=== PATIENT | female | born 1985 | race Caucasian/White ===

== ENCOUNTER 2021-12-17 16:30 | Emergency (ER) | payer OTHER ==
[2021-12-17 16:38] VITALS: BP 125/72
--- NOTE | 2021-12-17 16:49 | ED Physician Documentation ---
History of Present Illness - Stated complaint Stated Complaint: LUMP ON HEAD,HEADACHE - Chief complaint Chief Complaint: General - History obtained from History obtained from: Patient - Additonal information Additional information: 36-year-old woman otherwise healthy takes sertraline has noticed a lump to the back of her head that comes and goes for probably years. More recently the lumps been more tender and now she has a headache and she feels lightheaded when she laughs. No sudden onset headaches. No fever, no neck stiffness. Review of Systems Constitutional: denies: Fever, Chills, Fatigue Cardiac: denies: Chest pain / pressure, Palpitations Respiratory: denies: Dyspnea, Cough : reports: Irregular menses (She had a Nexplanon in place and then had it removed. Now her periods which were stone unloader are becoming more normal but they are still stone unloader than they were.) PD PAST MEDICAL HISTORY - Allergies Allergies/Adverse Reactions: Allergies Allergy/AdvReac Type Severity Reaction Status Date / Time No Known Drug Allergies Allergy Verified 12/17/21 16:38 PD ED PE NORMAL - Vitals Vital signs reviewed: Yes - General General: Alert and oriented X 3, No acute distress - HEENT HEENT: PERRL, EOMI, Other (Small palpable mass, question sebaceous cyst left occiput. No overlying skin changes.) - Neck Neck: Supple, no meningeal sign, No bony TTP - Cardiac Cardiac: RRR, No murmur - Respiratory Respiratory: No respiratory distress, Clear bilaterally - Abdomen Abdomen: Non tender - Neuro Neuro: Alert and oriented X 3, renal dialysis technician 2-12 intact, No motor deficit, No sensory deficit, Normal speech Eye Opening: Spontaneous Motor: Obeys Commands Verbal: Oriented GCS Score: 15 Results - Vitals Vitals: Vital Signs - 24 hr 12/17/21 16:34 Temperature 36.2 C L Heart Rate 82 Respiratory 16 Rate Blood Pressure 125/72 O2 Saturation 98 Oxygen O2 Source Room air - Labs Labs: Laboratory Tests 12/17/21 12/17/21 17:00 17:00 WBC 6.4 RBC 3.85 L Hgb 12.3 Hct 36.0 L MCV 93.5 MCH 31.9 H MCHC 34.2 RDW 12.7 Plt Count 169 MPV 12.4 H Neut # (Auto) 3.8 Lymph # (Auto) 1.9 [place] # (Auto) 0.4 Eos # (Auto) 0.2 Baso # (Auto) 0.0 Absolute Nucleated RBC 0.00 Nucleated RBC % 0.0 Sodium 137 Potassium 3.8 Chloride 103 Carbon Dioxide 26 Anion Gap 8.0 BUN 14 Creatinine 0.8 Estimated GFR (MDRD) 81 L Glucose 113 H Calcium 9.3 PD MEDICAL DECISION MAKING - ED course ED course: 36-year-old woman with a symptomatic lump on the back of her head which is very small on exam. No CT findings. She also had some dizziness when she laughed and was screened for anemia and only has very mild anemia. ENT follow-up was advised. Departure - Departure Disposition: 01 Home, Self Care Clinical Impression: Headache, Scalp mass Condition: Good Record reviewed to determine appropriate education?: Yes Instructions: ED Cephalgia Unspecified Comments: The lump on the back of her head is pretty small, the fact that its been there for a long time is reassuring but reasonable to seek specialty consultation, as such I think it would appropriate be appropriate to follow-up with an ENT surgeon for consideration for biopsy or other diagnostics. The closest is in [place], the phone number is [phone].
[2021-12-17 17:08] LABS: BASOPHILS % (AUTO) 0.6 %; EOSINOPHILS # (AUTO) 0.2 10^3/uL (0.0-0.7); EOSINOPHILS % (AUTO) 3.7 %; HGB - HEMOGLOBIN 12.3 g/dL (12.0-16.0); LYMPHOCYTES # (AUTO) 1.9 10^3/uL (1.5-3.5); LYMPHOCYTES % (AUTO) 28.9 %; MEAN CORPUSCULAR HEMOGLOBIN 31.9 pg (27.0-31.0); MEAN CORPUSCULAR HGB CONC 34.2 g/dL (32.0-36.0); MEAN CORPUSCULAR VOLUME 93.5 fL (81.0-99.0); MEAN PLATELET VOLUME 12.4 fL (7.9-10.8); MONOCYTES # (AUTO) 0.4 10^3/uL (0.0-1.0); MONOCYTES % (AUTO) 6.6 %; NEUTROPHILS # (AUTO) 3.8 10^3/uL (1.5-6.6); NEUTROPHILS % (AUTO) 59.7 %; PLT - PLATELET COUNT 169 10^3/uL (130-450); RED BLOOD COUNT 3.85 10^6/uL (4.20-5.40); RED CELL DISTRIBUTION WIDTH 12.7 % (12.0-15.0); WHITE BLOOD COUNT 6.4 x10^3/uL (4.8-10.8)
[2021-12-17 17:19] LABS: CALCIUM 9.3 mg/dL (8.5-10.3); CREATININE 0.8 mg/dL (0.4-1.0); POTASSIUM 3.8 mmol/L (3.5-5.0)
--- NOTE | 2021-12-17 17:25 | CT Report ---
PROCEDURE: HEAD WO INDICATIONS: headache TECHNIQUE: Noncontrast 4.5 mm thick angled axial sections acquired from the foramen magnum to the vertex. For r adiation dose reduction, the following was used: automated exposure control, adjustment of mA and/or kV according to patient size. COMPARISON: None. FINDINGS: Image quality: Excellent. CSF spaces: Basal cisterns are patent. No extra-axial fluid collections. Ventricles are normal in size and shape. Brain: No midline shift. No intracranial masses or hemorrhage. Ha-white matter interface is norm al. Skull and face: Calvarium and visualized facial bones are intact, without suspicious lesions. Sinuses: Visualized sinuses and mastoids are clear. IMPRESSION: No acute intracranial abnormality. Reviewed by: Cipriano Thibodeaux MD on 12/17/2021 5:23 PM PDT Approved by: Cipriano Thibodeaux MD on 12/17/2021 5:23 PM PDT Station ID: [id number]
== END 2021-12-17 17:35 | disposition home or self-care (01) ==
LOC: ED 16:30
DX: R22.0 Localized swelling, mass and lump, head (principal); R51.9 Headache, unspecified; D64.9 Anemia, unspecified
CPT/HCPCS: 36415; 80048; 85025; 99282; 99284